=== PATIENT | female | born 1930 | race Caucasian/White ===

== ENCOUNTER 2019-07-24 13:17 | Outpatient (CLI) | payer MEDICARE ==
[2019-07-24] MEDS ORDERED: LISI40TA PO (14:05)
[2019-07-24] MEDS ORDERED: CALC1CAP8 PO (14:05)
[2019-07-24] MEDS ORDERED: Flax Seed Oil PO (14:05)
[2019-07-24] MEDS ORDERED: DOCU-180 PO (14:05)
[2019-07-24] MEDS ORDERED: ASPI-496 PO (14:05)
[2019-07-24] MEDS ORDERED: OMEG1CAP23 PO (14:05)
[2019-07-24] MEDS ORDERED: MV-M1TAB54 PO (14:05)
[2019-07-24] MEDS ORDERED: CHOL10003 PO (14:05)
[2019-07-24] MEDS ORDERED: AMLO10TA8 PO (14:05)
[2019-07-24] MEDS ORDERED: CINN500C2 PO (14:05)
[2019-07-24] MEDS ORDERED: VIT1TABL32 PO (14:05)
== END 2019-07-24 23:59 | disposition home or self-care (01) ==
LOC: STAR 13:17
PROVIDERS: ATTEND Obstetrics & Gynecology Female Pelvic Medicine and Reconstructive Surgery
DX: Z01.818 Encounter for other preprocedural examination (principal); N39.3 Stress incontinence (female) (male); N81.10 Cystocele, unspecified; N81.6 Rectocele; R10.2 Pelvic and perineal pain
CPT/HCPCS: 93005

== ENCOUNTER 2019-07-30 17:55 | Emergency (ER) | payer MEDICARE ==
[~2019-07-30] VITALS: Ht 157.5 cm; Wt 66.8 kg
[~2019-07-30 17:55] MED LIST: AMLO10TA8 PO; ASPI-496 PO; CALC1CAP8 PO; CHOL10003 PO; CINN500C2 PO; DOCU-180 PO; Flax Seed Oil PO; LISI40TA PO; MV-M1TAB54 PO; OMEG1CAP23 PO; VIT1TABL32 PO
--- NOTE | 2019-07-30 19:01 | NUR ---
REPORT GIVEN TO ROBB GRIGSBY.
--- NOTE | 2019-07-30 19:36 | NUR ---
BLADDER SCAN INDICATED 0ML. VSS.
--- NOTE | 2019-07-30 19:59 | NUR ---
FLUSHED CATHETER WITH 20CC PER PROVIDER ORDER, NO CLOTS OR OBSTRUCTION NOTED, PT DENIED PAIN.
[2019-07-30 20:34] VITALS: BP 98/56
--- NOTE | 2019-07-30 20:35 | NUR ---
ROY BAG EMPTIED, EDUCATED PT ON INFECTION PREVENTION AND CATH CARE.
== END 2019-07-30 20:43 | disposition home or self-care (01) ==
LOC: ED 20:35
DX: N99.89 Other postprocedural complications and disorders of genitourinary system (principal); R10.30 Lower abdominal pain, unspecified
CPT/HCPCS: 99284

== ENCOUNTER → 2020-01-10 | Outpatient (CLI) | payer MEDICARE ==
[2020-01-10 10:29] LABS: ALANINE AMINOTRANSFERASE 21 U/L (12-78); ALBUMIN 4.1 g/dL (3.4-5.0); ANION GAP 5 mmol/L (5-15); CALCIUM 9.3 mg/dL (8.5-10.1); CHLORIDE 111 mmol/L (98-107); CREATININE 1.07 mg/dL (0.55-1.02)
[2020-01-10 10:31] LABS: ALKALINE PHOSPHATASE 65 U/L (45-117); BILIRUBIN,TOTAL 0.3 mg/dL (0.2-1.0); TOTAL PROTEIN 7.9 g/dL (6.4-8.2)
== END | disposition home or self-care (01) ==
LOC: STAR 08:55
PROVIDERS: ATTEND Obstetrics & Gynecology Female Pelvic Medicine and Reconstructive Surgery
DX: Z01.818 Encounter for other preprocedural examination (principal); Z11.59 Encounter for screening for other viral diseases; R10.2 Pelvic and perineal pain; N39.3 Stress incontinence (female) (male); N81.10 Cystocele, unspecified; N81.6 Rectocele
CPT/HCPCS: 36415; 80053; 87635; 93005

== ENCOUNTER 2020-01-14 12:48 | Day surgery (SDC) | payer MEDICARE ==
[~2020-01-14] VITALS: Ht 157.5 cm; Wt 65.0 kg
[~2020-01-14 12:48] MED LIST changes: +BUPIVACAINE/PF 0.25% ONE; +GENTAMICIN 80 MG/2 ML ONE; +VANCOMYCIN 500 MG ONE
[2020-01-14] MEDS ORDERED: LACTATED RINGERS 1,000 ML IV SCH (12:57)
[2020-01-14] MEDS ORDERED: CHLORHEXIDINE 15 ML UDC MM STA (13:01)
[2020-01-14 13:14] VITALS: BP 144/76
[2020-01-14] MEDS ORDERED: FENTANYL PF 100 MCG/2ML ONE (15:07)
[2020-01-14] MEDS ORDERED: PROPOFOL 10 MG/ML, 20ML ONE (15:07)
[2020-01-14] MEDS ORDERED: CEFAZOLIN 1,000 MG ONE ×2 (15:08)
[2020-01-14] MEDS ORDERED: OXYcodone 5 MG/5 ML ORAL.SOL UDC PO PRN (16:30)
[2020-01-14] MEDS ORDERED: morphine SULFATE 10 MG/ML, 1ML IVPush PRN (16:30)
[2020-01-14] MEDS ORDERED: ONDANSETRON 2MG/ML, 2ML IVPush PRN (16:30)
[2020-01-14] MEDS ORDERED: FENTANYL PF 100 MCG/2ML IV PRN (16:30)
[2020-01-14] MEDS ORDERED: ACETAMINOPHEN 325 MG TABLET PO PRN (16:30)
[2020-01-14] MEDS ORDERED: ONDANSETRON 2MG/ML, 2ML ONE (16:44)
== END 2020-01-14 18:40 | disposition home or self-care (01) ==
LOC: OUT 12:48
PROVIDERS: ATTEND Obstetrics & Gynecology Female Pelvic Medicine and Reconstructive Surgery
DX: N99.3 Prolapse of vaginal vault after hysterectomy (principal); N39.46 Mixed incontinence; N90.5 Atrophy of vulva; R10.2 Pelvic and perineal pain; M19.90 Unspecified osteoarthritis, unspecified site; I10 Essential (primary) hypertension; Z79.899 Other long term (current) drug therapy; Z88.0 Allergy status to penicillin; Z90.79 Acquired absence of other genital organ(s); Z90.722 Acquired absence of ovaries, bilateral; Z98.890 Other specified postprocedural states
CPT/HCPCS: 57265; 57282; 57288; C1771; J0690; J1580; J2405; J2704; J3010; J3370; J3490; J7120